=== PATIENT | female | born 1975 | race American Indian/Alaskan Native ===

== ENCOUNTER 2016-07-20 12:00 | Emergency (ER) | payer SELFPAY ==
[2016-07-20] MEDS ORDERED: MOTRIN PO ONE (12:31)
--- NOTE | 2016-07-20 14:06 | XRay Report ---
CHEST 2 VIEWS INDICATION: Shortness of breath. COMPARISON: None similar at this institution. FINDINGS: PA and lateral chest radiographs demonstrate normal cardiomediastinal silhouette. Clear lungs. Intact bones. CONCLUSION: No acute disease in the chest. Thank you for the opportunity to participate in this patient's care.
--- NOTE | 2016-07-20 14:25 | Emergency Department Report ---
ED Fever HPI - General Chief Complaint: Fever Stated Complaint: BODY ACHES Time Seen by Provider: 07/20/16 14:09 ED Review of Systems ROS: Stated complaint: BODY ACHES Other details as noted in HPI ED Past Medical Hx - Past Medical History Previous Medical History?: No - Surgical History Additional Surgical History: TUBAL LIGATION - Social History Smoking Status: Never Smoker Substance Use Type: Alcohol - Medications Home Medications: Home Medications Medication Instructions Recorded Confirmed Last Taken Type No Known Home Medications [No 07/20/16 07/20/16 Unknown History Reported Home Medications] ED Physical Exam - General Limitations: No Limitations ED Course Vital Signs 07/20/16 07/20/16 12:26 12:35 Temperature 103.1 F H Pulse Rate 145 H Respiratory 22 21 Rate Blood Pressure 109/66 O2 Sat by Pulse 98 Oximetry Critical care attestation.: If time is entered above; I have spent that time in minutes in the direct care of this critically ill patient, excluding procedure time. ED Disposition Condition: Stable Referrals: PRIMARY CARE [Primary Care Provider] - 3-5 Days
--- NOTE | 2016-07-20 15:27 | Emergency Department Report ---
Entered by TERRELL NAVAS, acting as scribe for KEATON WHITE PA. ED Fever HPI - General Chief Complaint: Fever Stated Complaint: BODY ACHES Time Seen by Provider: 07/20/16 14:09 Source: patient Exam Limitations: no limitations - History of Present Illness Initial Comments: 40 year old female with no significant PMHx presents to the ED c/o a fever that began 3 days ago. Associated symptoms includes headache that began last night, productive cough with yellow sputum, fever, chills, nausea, nasal congestion at night, body aches, chest pain, but she denies vomiting, SOB, and diarrhea. Pt states that she has taken Theraflu and Extra Strength Tylenol (last dose [employer]). Timing/Duration: constant Fever Severity/Quality: greater than 102 F (103.1) Fever Therapy [employer]: Tylenol (extra strength) Associated Symptoms: chest pain, cough (productive), headache (since last night) , other (fever, chills, nasal congestion at night, body aches, yellow mucous, denies diarrhea). denies: nausea/vomiting, shortness of breath ED Review of Systems Comment: All other systems reviewed and negative Constitutional: chills, fever (103.1) ENT: congestion Respiratory: cough (productive with yellow sputum). denies: orthopnea, shortness of breath, SOB with exertion, SOB at rest Cardiovascular: chest pain. denies: dyspnea on exertion, orthopnea Gastrointestinal: nausea. denies: vomiting, diarrhea Musculoskeletal: myalgia (body aches) Neurological: headache (since last night) ED Past Medical Hx - Past Medical History Previous Medical History?: No - Surgical History Additional Surgical History: TUBAL LIGATION - Social History Smoking Status: Never Smoker Substance Use Type: Alcohol - Medications Home Medications: Home Medications Medication Instructions Recorded Confirmed Last Taken Type ALBUTEROL Inhaler [ProAir HFA 2 puff IH QID PRN #1 inhalation 07/20/16 Unknown Rx Inhaler] Azithromycin [Zithromax Z-TRISTIAN] 250 mg PO QDAY #6 tablet 07/20/16 Unknown Rx No Known Home Medications [No 07/20/16 07/20/16 Unknown History Reported Home Medications] ED Physical Exam - General Limitations: No Limitations General appearance: alert, in no apparent distress (does't look sick/toxic) - Head Head exam: Present: atraumatic, normocephalic - Eye Eye exam: Present: normal appearance, PERRL, EOMI - ENT ENT exam: Present: normal exam, mucous membranes moist - Neck Neck exam: Present: normal inspection, full ROM. Absent: tenderness, meningismus, lymphadenopathy - Respiratory Respiratory exam: Present: normal lung sounds bilaterally. Absent: respiratory distress, wheezes, rales, rhonchi, stridor - Cardiovascular Cardiovascular Exam: Present: regular rate - GI/Abdominal GI/Abdominal exam: Present: soft. Absent: distended, tenderness, guarding, rebound, rigid - Extremities Exam Extremities exam: Present: normal inspection, full ROM - Back Exam Back exam: Present: normal inspection, full ROM - Neurological Exam Neurological exam: Present: alert, oriented X3 - Psychiatric Psychiatric exam: Present: normal affect, normal mood - Skin Skin exam: Present: warm, dry, intact ED Course Vital Signs 07/20/16 07/20/16 12:26 12:35 Temperature 103.1 F H Pulse Rate 145 H Respiratory 22 21 Rate Blood Pressure 109/66 O2 Sat by Pulse 98 Oximetry ED Disposition Clinical Impression: URI, acute Disposition: DISCHARGED TO HOME OR SELFCARE Is pt being admited?: No Condition: Stable Instructions: Upper Respiratory Infection (ED) Prescriptions: ALBUTEROL Inhaler [ProAir HFA Inhaler] 2 puff IH QID PRN #1 inhalation PRN Reason: Shortness Of Breath Azithromycin [Zithromax Z-TRISTIAN] 250 mg PO QDAY #6 tablet Referrals: PRIMARY CARE,MD [Primary Care Provider] - 3-5 Days Forms: Work/School Release Form(ED) This documentation as recorded by the YOSEF lilly JASMINE,accurately reflects the service I personally performed and the decisions made by me,KEATON WHITE PA.
[2016-07-20 15:41] VITALS: BP 102/71
== END 2016-07-20 15:40 | disposition home or self-care (01) ==
LOC: ED 12:00
DX: J06.9 Acute upper respiratory infection, unspecified (principal); Z98.51 Tubal ligation status
CPT/HCPCS: 71020; 87400; 99283